=== PATIENT | female | born 2000 | race Hispanic/Latino ===

== ENCOUNTER 2023-07-23 12:47 | Emergency (ER) | payer BC, OTHER ==
[~2023-07-23] VITALS: Ht 165.1 cm; Wt 69.9 kg
[2023-07-23 14:09] VITALS: BP 148/76; PULSE 72; RESP 18
[2023-07-23 15:00] LABS: RAPID GROUP A STREP negative (NEGATIVE)
[2023-07-23 15:02] LABS: SARS-CoV-2, RNA, NAAT NEGATIVE SARS CoV-2 (NEGATIVE)
[2023-07-23 15:10] LABS: INFLUENZA TYPE A Negative For Type A (NEGATIVE); INFLUENZA TYPE B Negative For Type B (NEGATIVE)
[2023-07-23] MEDS: LORATADINE 10 MG TABLET PO SCH (15:30)
[2023-07-23] MEDS: DEXAMETHASONE SOD PHOSPHATE 4 MG/ML 1ML VIAL IM ONE (15:35)
[2023-07-23] MEDS ORDERED: LORA10TA7 PO (16:37)
[2023-07-23] MEDS ORDERED: FLUT16H NASAL (16:37)
== END 2023-07-23 17:06 | disposition home or self-care (01) ==
LOC: EDH 12:47
DX: H83.8X3 Other specified diseases of inner ear, bilateral (principal); J06.9 Acute upper respiratory infection, unspecified; Z20.822 Contact with and (suspected) exposure to COVID-19
CPT/HCPCS: 99283; 87635; 87880; 87804 ×2; J1100